=== PATIENT | female | born 1935 | race American Indian/Alaskan Native ===

== ENCOUNTER 2017-03-08 17:16 | Observation (INO) ==
--- NOTE | 2017-03-08 17:36 | Emergency Department Report ---
General Adult HPI - General Chief complaint: Medical Emergency Stated complaint: blood transfusion Time Seen by Provider: 03/08/17 17:24 Source: patient Mode of arrival: ambulatory Limitations: no limitations - History of Present Illness HPI narrative: 81-year-old female presents to the emergency department with the chief complaint of anemia. Patient had preoperative labs on Monday in order to get ready for a left total knee replacement with Dr. Rivera. Patient was noted to have a hemoglobin in the 6 range. Patient denies any pain or discomfort. Patient has not noted any blood in stool. She has not had any emesis. She does take Xarelto. Denies any pain or discomfort. She is currently asymptomatic. She was at home when Dr. Velasco's office called and notified her of her abnormal lab results earlier today. No other complaints or associated symptoms. - Related Data Home Medications Medication Instructions Recorded Confirmed Latanoprost 1 drop BOTH EYES HS #0 08/29/13 03/08/17 Potassium Chloride 20 mg PO BID #0 08/29/13 03/08/17 Atorvastatin Calcium 10 mg PO HS #0 tab 05/13/15 03/08/17 Valsartan 160 mg PO DAILY #0 05/13/15 03/08/17 Pacerone (amiodarone) 200 mg tablet 200 mg PO BID 03/06/17 03/08/17 calcitriol 0.5 mcg capsule 0.5 mcg PO DAILY cap 03/06/17 03/08/17 hydralazine 10 mg tablet 10 mg PO TID 03/06/17 03/08/17 Labetalol HCl 300 mg PO BID 03/08/17 03/08/17 Levothyroxine Tab [Synthroid] 100 mcg PO ACB 03/08/17 03/08/17 Previous Rx's Medication Instructions Recorded Furosemide [Lasix] 40 mg PO DAILY #30 tab 05/16/15 Rivaroxaban [Xarelto] 20 mg PO WS #30 tab 05/16/15 Allergies Allergy/AdvReac Type Severity Reaction Status Date / Time Iodinated Contrast- Oral and Allergy Severe "CAN'T Verified 03/08/17 17:45 IV Dye BREATHE" amoxicillin Allergy Intermediate RASH Verified 03/08/17 17:45 codeine Allergy Intermediate HIVES Verified 03/08/17 17:45 diltiazem Allergy Intermediate RASH Verified 03/08/17 17:45 lisinopril Allergy Intermediate RASH Verified 03/08/17 17:45 Sulfa (Sulfonamide Allergy Unknown Verified 03/08/17 17:45 Antibiotics) clindomycine Allergy Uncoded 03/06/17 11:43 Review of Systems Constitutional: Denies: fever, chills Eyes: Denies: eye pain, vision change ENT: Denies: ear pain, throat pain Cardiovascular: Denies: chest pain, palpitations Respiratory: Denies: cough, dyspnea Gastrointestinal: Denies: abdominal pain, nausea, vomiting, diarrhea Genitourinary: Denies: urgency, dysuria Musculoskeletal: Denies: back pain, arthralgia Integumentary: Denies: erythema, rash Neurological: Denies: headache, numbness Psychiatric: Denies: anxiety, depression Endocrine: Denies: fatigue, heat or cold intolerance Hematological/Lymphatic: Denies: easy bleeding, easy bruising Allergic/Immunologic: Denies: facial swelling, urticaria PFSH Patient Stated Medical History Glaucoma Yes Other HEENT Yes: GLASSES Cardiac Arrhythmia Yes Hypertension Yes Hx Renal Disease Yes: FROM MEDS Other Hematologic Yes: [facility] Medical History (Last Reviewed 03/06/17 @ 12:16 by Trip Rinaldi RN) Anemia (Acute Medical) HTN (hypertension) (Chronic Medical) Glaucoma (Chronic Medical) CHF (congestive heart failure) (Chronic Medical) Afib (Chronic Medical) Hypothyroidism Surgical History: colon;R TKA-2003; hernia Family History: Family History (Last Reviewed 03/06/17 @ 12:16 by Trip Rinaldi RN) Brother HTN (hypertension) - Social History Smoking status: Never smoker Substance use type: does not use Alcohol intake frequency: does not drink Physical Exam - Limitations Limitations: no limitations - General General appearance: alert, in no apparent distress - Normal Exams: Head:: Normocephalic without trauma Eyes:: Pupils are PERRLA w/ EOMI, No scleral icterus, irritation, or foreign bodies noted ENMT:: No facial trauma, nasal exudates, pharyngeal erythema, or exudates are noted Dental: No fractured, loose, or missing teeth noted Neck:: Full range of motion, without adenopathy, JVD, bruits or thyromegaly Chest/Respirations:: Clear all ya, with good airflow, and symmetry bilaterally Cardiovascular:: Regular rate and rhythm, without murmur or gallop, Pulses 2+ all extremities, capillary refill, <2 seconds all extremities Abdomen:: Bowel sounds positive, soft, non-tender, non-distended, no hepatosplenomegaly, masses or bruits noted Lymphatic:: No lymphadenopathy, or lymphedema noted Musculoskeletal:: No tenderness, or deformity noted, good range of motion, all extremities Integumentary:: No rashes, hives, or bruising noted, hair and nails, without abnormality Neurological:: Patient is alert, and oriented, cranial nerves, motor/sensory/ cerebellar, exams w/o gross deficits, to observation Psychiatric:: Patient exhibits, appropriate attention, emotion and affect Course Vital Signs Temperature 98.4 F 03/08/17 17:26 Pulse Rate 62 03/08/17 17:26 Respiratory Rate 18 03/08/17 17:26 Blood Pressure 176/79 H 03/08/17 17:26 Pulse Oximetry 97 03/08/17 17:26 Temperature 97.7 F 03/09/17 08:00 Pulse Rate 59 L 03/09/17 08:40 Respiratory Rate 18 03/09/17 08:00 Blood Pressure 170/74 H 03/09/17 08:00 Pulse Oximetry 96 03/09/17 08:00 Medical Decision Making - MDM Narrative Medical decision making narrative: Labs were discussed in detail with the patient and family and questions are answered. Rectal examination was heme-negative in the emergency department. Patient declines offered analgesic pain medication stating she is currently pain -free. Patient is noted to have a hemoglobin of 6.1. Patient will have her Xarelto held and will be transfused 2 units of packed red blood cells. No imminent life-threatening bleed is noted. Patient is admitted to the service of Dr. Díaz in improved condition. No further orders from accepting physician who is in agreement with the current plan of management. Patient and family are in agreement with the current plan of management. Patient is admitted to the hospital in improved condition. - Differential Diagnosis GI BLEED, Anemia, Metabolic process, CA - Lab Data Result diagrams: 03/09/17 08:41 03/09/17 03:45 Lab Results 03/08/17 03/08/17 03/08/17 Range/Units 17:47 17:47 17:47 WBC 5.5 (4.5-11.0) T/MM3 RBC 3.32 L (4.00-5.20) M/MM3 Hgb 6.1 L (12-16) GM/DL Hct 21.8 L (36-46) % MCV 65.7 L (80-100) UM3 MCH 18.4 L (26-34) UUG MCHC 28.0 L (31-37) GM/DL RDW Std Deviation 44.6 (36.9-50.2) FL Plt Count 258 (130-400) T/MM3 MPV 10.7 (9.4-12.4) UM3 Immature Gran % (Auto) 0.2 (0.0-0.5) % Neut % (Auto) 71.7 H (33-66) % Lymph % (Auto) 14.3 L (23-45) % Taylor % (Auto) 7.8 (0-9.0) % Eos % (Auto) 4.9 H (0-4) % Baso % (Auto) 1.1 (0-2) % Neut # (Auto) 4.0 (1.8-7.7) T/MM3 Lymph # (Auto) 0.8 L (1-4.8) T/MM3 Taylor # (Auto) 0.4 (0-0.8) T/MM3 Eos # (Auto) 0.3 (0-0.5) T/MM3 Baso # (Auto) 0.1 (0-0.2) T/MM3 Abs Immat Gran (auto) 0.01 (0.00-0.03) T/MM3 INR 1.58 H (0.99-1.21) APTT 26.6 (24-36) SEC Turbidity < 20 (0-20) Sodium 143 (134-144) MEQ/L Potassium 3.9 (3.6-5) MEQ/L Chloride 106 (98-107) MEQ/L Carbon Dioxide 27 (22-30) MEQ/L Anion Gap 10 (5-15) MEQ/L BUN 17.0 (7-17) MG/DL Creatinine 1.7 H (0.7-1.2) MG/DL GFR Calculation 29 BUN/Creatinine Ratio 10 (6-26) RATIO Glucose 111 H (65-110) MG/DL Calculated Osmolality 278 (261-280) MOSM/KG Calcium 9.4 (8.4-10.2) MG/DL Total Bilirubin 0.50 (0.20-1.30) MG/DL Icterus Index < 2 (0-7) AST 22 (14-36) U/L ALT 34 (9-52) U/L Alkaline Phosphatase 122 (38-126) U/L Troponin I < 0.012 (0-0.12) ng/ml Total Protein 6.9 (6.3-8.2) G/DL Albumin 3.8 (3.5-5.0) G/DL Globulin 3.1 (2.4-3.6) G/DL Albumin/Globulin Ratio 1.2 (1.1-2.2) RATIO Specimen Hemolysis < 15 (0-25) Blood Type Antibody Screen Crossmatch (AHG) Blood Product Request 03/08/17 03/08/17 Range/Units 18:08 18:32 WBC (4.5-11.0) T/MM3 RBC (4.00-5.20) M/MM3 Hgb (12-16) GM/DL Hct (36-46) % MCV (80-100) UM3 MCH (26-34) UUG MCHC (31-37) GM/DL RDW Std Deviation (36.9-50.2) FL Plt Count (130-400) T/MM3 MPV (9.4-12.4) UM3 Immature Gran % (Auto) (0.0-0.5) % Neut % (Auto) (33-66) % Lymph % (Auto) (23-45) % Taylor % (Auto) (0-9.0) % Eos % (Auto) (0-4) % Baso % (Auto) (0-2) % Neut # (Auto) (1.8-7.7) T/MM3 Lymph # (Auto) (1-4.8) T/MM3 Taylor # (Auto) (0-0.8) T/MM3 Eos # (Auto) (0-0.5) T/MM3 Baso # (Auto) (0-0.2) T/MM3 Abs Immat Gran (auto) (0.00-0.03) T/MM3 INR (0.99-1.21) APTT (24-36) SEC Turbidity (0-20) Sodium (134-144) MEQ/L Potassium (3.6-5) MEQ/L Chloride (98-107) MEQ/L Carbon Dioxide (22-30) MEQ/L Anion Gap (5-15) MEQ/L BUN (7-17) MG/DL Creatinine (0.7-1.2) MG/DL GFR Calculation BUN/Creatinine Ratio (6-26) RATIO Glucose (65-110) MG/DL Calculated Osmolality (261-280) MOSM/KG Calcium (8.4-10.2) MG/DL Total Bilirubin (0.20-1.30) MG/DL Icterus Index (0-7) AST (14-36) U/L ALT (9-52) U/L Alkaline Phosphatase (38-126) U/L Troponin I (0-0.12) ng/ml Total Protein (6.3-8.2) G/DL Albumin (3.5-5.0) G/DL Globulin (2.4-3.6) G/DL Albumin/Globulin Ratio (1.1-2.2) RATIO Specimen Hemolysis (0-25) Blood Type O Positive Antibody Screen Negative Crossmatch (AHG) See Detail Blood Product Request Cancelled - EKG Data EKG #1 EKG results narrative: Sinus bradycardia with first-degree AV block. 58 beats per minute. No STEMI. Critical Care Time Critical Care Time: Yes Total Critical Care Time: 37 Attestation: 35 minutes of critical care time was assessed to the patient as the patient had a hemoglobin of 6.1 and was transfused 2 units of packed red blood cells. Patient required complex medical decision-making, repeated assessment at the bedside, and had potential for decompensation. Critical care time was spent treating the patient, documenting the medical record, making telephone calls on the patient's behalf, and updating family members. Disposition Clinical Impression: anemia Disposition: 02 To [facility] Condition: Improved Time of Disposition: 18:00 (Admit. Dr. Díaz. ) - Seen By: physician
[2017-03-08] MEDS: SALINE FLUSH 10ml SYRINGE IVF PRN ×2 (17:49→21:05)
--- NOTE | 2017-03-08 19:23 | History & Physical Report ---
History of Present Illness Date: 03/08/17 Chief complaint: low hemoglobin HPI: Patient is a 81-year-old female who presents to the emergency room because she had preop lab work and her hemoglobin was 6.1. She reports she is planning on having knee surgery within the next few weeks with Dr. Rivera. She has not been feeling ill. Her only complaints are the left knee pain and she has had some lightheadedness. She had thought that was a side effect of one of her medications, but that medication has been discontinued and she still has some lightheadedness. She is unsure when her last CBC was performed. There is documentation from May 2015 of a hemoglobin of 9.8. She does have chronic kidney disease and sees Dr. Chen for this. She also has atrial fibrillation and CHF and sees Dr. Barksdale for this. She is currently on Xarelto for A. fib. She does not know when her last colonoscopy was. She has not noted any blood in her stool. Hemoccult in the ER was negative. No history of gastritis, but does have a history of diverticulitis for which she had bowel resection. Labs drawn in the ER show a hemoglobin of 6.1 with microcytic indices. INR 1.58 , CMP essentially negative other than creatinine 1.7. It appears her baseline creatinine averages approximately 1.4. Her creatinine July 2016 was 1.49. She has hypothyroidism and hyperparathyroidism. Her last TSH was 3.48 in October 2016. On exam, patient is noted to have a palpable mass in the left lower quadrant. Patient tells me she's had this for years. She states she's told other healthcare providers about it, but they were not concerned. She does not believe that she's had any workup for this. She states she had a good bowel movement yesterday. Does not feel constipated. She also mentions that she has "lost a lot of weight." She states she really wasn't trying to. She feels like she may have lost some because she was on a medicine that caused sores in her mouth. She also reports she doesn't have many "taste buds left," and feels that may contribute to her not eating as much. Review of Systems All systems PM: 10-point ROS was reviewed, no additional remarkable complaints except - Constitutional Constitutional: Present: other (lightheadedness) - Musculoskeletal Musculoskeletal: Present: arthralgias (left knee pain) PFSH Medical History Hypertension Chronic kidney disease-stage III Congestive heart failure Atrial fibrillation-paroxysmal Chronic anticoagulation Secondary hyperparathyroidism Hypothyroidism Aortic stenosis-mild Tricuspid valve insufficiency Dyslipidemia Glaucoma Surgical History: R TKA-2002; hernia repair, appendectomy, cholecystectomy, hysterectomy, partial bowel resection with colostomy followed later by reanastomosis Family History: Family History Mother-hypertension, obesity Sister-hypertension and obesity Paternal grandfather-[place] Brother -hypertension - Social History Smoking status: Never smoker Substance use type: does not use Alcohol intake frequency: does not drink Housing: house Household members: spouse Social history: PCP-Dr. 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 Medications Home Medications Medication Instructions Recorded Confirmed Type Latanoprost 1 drop BOTH EYES HS #0 08/29/13 03/08/17 History Potassium Chloride 20 mg PO BID #0 08/29/13 03/08/17 History Atorvastatin Calcium 10 mg PO HS #0 tab 05/13/15 03/08/17 History Valsartan 160 mg PO DAILY #0 05/13/15 03/08/17 History Pacerone (amiodarone) 200 mg tablet 200 mg PO BID 03/06/17 03/08/17 History calcitriol 0.5 mcg capsule 0.5 mcg PO DAILY cap 03/06/17 03/08/17 History hydralazine 10 mg tablet 10 mg PO TID 03/06/17 03/08/17 History Labetalol HCl 300 mg PO BID 03/08/17 03/08/17 History Levothyroxine Tab [Synthroid] 100 mcg PO ACB 03/08/17 03/08/17 History Allergies Allergy/AdvReac Type Severity Reaction Status Date / Time Iodinated Contrast- Oral and Allergy Severe "CAN'T Verified 03/08/17 17:45 IV Dye BREATHE" amoxicillin Allergy Intermediate RASH Verified 03/08/17 17:45 codeine Allergy Intermediate HIVES Verified 03/08/17 17:45 diltiazem Allergy Intermediate RASH Verified 03/08/17 17:45 lisinopril Allergy Intermediate RASH Verified 03/08/17 17:45 Sulfa (Sulfonamide Allergy Unknown Verified 03/08/17 17:45 Antibiotics) clindomycine Allergy Uncoded 03/06/17 11:43 Exam Vital Signs: Temperature 98.4 F 03/08/17 17:26 Pulse Rate 60 03/08/17 17:56 Respiratory Rate 18 03/08/17 17:56 Blood Pressure 164/72 H 03/08/17 17:56 Pulse Oximetry 97 03/08/17 17:56 Height/Weight/BMI: Height 1.55 m Weight 93.5 kg - Constitutional Present: no acute distress, well nourished, well developed, obese - Routine HEENT Exam Head: Present: normocephalic, atraumatic Eye: Present: EOMI ENT: Present: mucous membranes moist, dentition normal - Routine Neck Exam Present: supple. Absent: lymphadenopathy, thyromegaly - Routine Respiratory Exam Present: CTA bilaterally. Absent: wheezes - Routine Cardiovascular Exam Present: RRR, murmur (grade 2) - Routine Abdominal Exam Present: soft, normoactive bowel sounds, non distended, surgical scars. Absent : tenderness Comments: She has an area on the right lower abdomen which is approximately 10 cm in diameter, she refers to as a "hernia" - it is nontender. Really does not increase in size with Valsalva. Question if this could be a lipoma. This would be an odd area for hernia. It is not in the area of her surgical scarring. She has an approximately 5 cm mass in the left lower quadrant which is essentially just lateral to this other abnormal area, but this area is palpably hard. Could be stool in the colon, but need to rule out pathologic mass. - Routine Extremities Exam Present: edema (no pedal edema. Patient has a tightness and fullness to her lower legs compared to her feet, no pitting edema.), normal capillary refill - Routine Skin Exam Present: dry, warm - Routine Neurological Exam Present: alert, oriented X3, CN II-XII intact - Routine Psychiatric Exam Present: normal affect, cooperative Results - Labs CBC & Chem 7: 03/08/17 17:47 03/08/17 17:47 Labs: Laboratory Tests 03/08/17 17:47 Total Bilirubin 0.50 AST 22 ALT 34 Troponin I < 0.012 Laboratory Tests 03/08/17 17:47 INR 1.58 H APTT 26.6 Hemoccult 1 in ER-negative Assessment and Plan (1) Anemia Current visit: Yes Status: Acute (2) HTN (hypertension) Current visit: No Status: Chronic (3) Glaucoma Current visit: No Status: Chronic (4) CHF (congestive heart failure) Current visit: No Status: Chronic (5) Afib Current visit: No Status: Chronic Assessment and Plan: Assessment Anemia Abdominal mass Atrial fibrillation-paroxysmal Chronic anticoagulation Hypertension Chronic kidney disease-stage III Congestive heart failure Secondary hyperparathyroidism Hypothyroidism Aortic stenosis-mild Tricuspid valve insufficiency Dyslipidemia Glaucoma Diverticulitis Plan Admit for hospital observation under the hospitalist service (Dr. Díaz, attending) for blood transfusion and further monitoring. Type and cross and give 2 units PRBCs. Given her CHF will hold off on IV fluids other than the blood initially. Repeat CBC and BMP in the a.m. Hold Xarelto temporarily given her low hemoglobin. Workup anemia further with iron studies and B12/folate. CT abdomen/pelvis in the a.m. to workup the abdominal mass. Check urinalysis given the abdominal mass. Protonix for GI protection and possible GI bleed. Repeat Hemoccult with next BM. SCDs for DVT prophylaxis. Check with PCPs office in the morning to see if we can get a previous hemoglobin for baseline. Patient wishes to be a full code. Care to return to her PCP, Dr. Gama, on discharge. 03/08/2017-Dr. Díaz I reviewed this chart, the patient history, and the [employer]PERVIS[employer]'s/PA's documented findings as above. We discussed and formulated the assessment and plan as above with the additions below. The patient was seen this evening accompanied by her grandson. She states she was feeling fine other than some lightheadedness and on preop lab was found to have a low hemoglobin. She denies any black stools or bloody stools. She denies any upper abdominal pain. She does have a history of gastric ulcer many many years ago. She states she's had a 40 pound weight loss which was partly intentional and partly she thinks because of sores in her mouth and lips. The sores have healed but she states she has lost her sense of taste since then. She states that she has some chronic mild abdominal discomfort and relates this to previous surgery that she's had in the past for diverticulitis with colostomy placement and takedown. She states she has some mesh in her abdomen from her previous surgery and was told that it may have "fallen". On exam she is alert and oriented and in no acute distress. Chest is clear to auscultation. Cardiovascular reveals a regular rate and rhythm with a 2/6 systolic murmur. Abdomen is soft and obese with positive bowel sounds. She does have some firmness in the left lower quadrant which may be the area of her mesh. She has no particular tenderness to exam. Extremities reveal trace edema. Skin is warm and dry and pale. Impression and plan We'll admit for observation and give 2 units of blood. Resume her usual home medications. Initiate anemia workup. Possible discharge in the morning. Hold Xarelto for now. Recheck lab in the morning. DVT Prophylaxis: SCD's GI Prophylaxis: Protonix Resuscitation Status: Full Code Hospital Course Summary Disclaimer: The visit summary below is not to be considered part of the above Progress Note. Hospital Course: Assessment Anemia Abdominal mass Atrial fibrillation-paroxysmal Chronic anticoagulation Hypertension Chronic kidney disease-stage III Congestive heart failure Secondary hyperparathyroidism Hypothyroidism Aortic stenosis-mild Tricuspid valve insufficiency Dyslipidemia Glaucoma Diverticulitis 03/08/17-hospital admission for observation Admit for hospital observation under the hospitalist service (Dr. Díaz, attending) for blood transfusion and further monitoring. Type and cross and give 2 units PRBCs. Given her CHF will hold off on IV fluids other than the blood initially. Repeat CBC and BMP in the a.m. Hold Xarelto temporarily given her low hemoglobin. Workup anemia further with iron studies and B12/folate. CT abdomen/pelvis in the a.m. to workup the abdominal mass. Check urinalysis given the abdominal mass. SCDs for DVT prophylaxis. Check with PCPs office in the morning to see if we can get a previous hemoglobin for baseline. Patient wishes to be a full code. Care to return to her PCP, Dr. Gama, on discharge.
[2017-03-08 19:39] VITALS: BMI 38.6
[2017-03-08] MEDS ORDERED: PNEUMOCOCCAL 13 VACCINE 0.5ml INJECTION IM ONE (19:54)
[2017-03-08] MEDS: NS FLUSH BAG 500ml IV PRN (21:06)
[2017-03-08] MEDS ORDERED: LABETALOL 100 MG TABLET PO ONE (21:29)
[2017-03-08] MEDS: AMIODARONE 200 MG TABLET PO SCH (21:56)
[2017-03-08] MEDS: HYDRALAZINE 10 MG TABLET PO SCH (22:04)
[2017-03-09] MEDS ORDERED: FUROSEMIDE 20 MG/2 ML INJECTION IVP ONE
[2017-03-09] MEDS: SALINE FLUSH 10ml SYRINGE IVF PRN ×3 (00:47→04:03)
[2017-03-09] MEDS: ACETAMINOPHEN 325 MG TABLET PO PRN ×2 (01:03→10:42)
[2017-03-09] MEDS: NS FLUSH BAG 500ml IV PRN (01:26)
[2017-03-09] MEDS ORDERED: LEVOTHYROXINE 100 MCG TABLET PO SCH (06:30)
[2017-03-09] MEDS ORDERED: LABETALOL 100 MG TABLET PO SCH (09:00)
[2017-03-09] MEDS ORDERED: FUROSEMIDE 40 MG TABLET PO SCH (09:00)
[2017-03-09] MEDS ORDERED: Valsartan 160 MG TABLET PO SCH (09:00)
[2017-03-09] MEDS ORDERED: PANTOPRAZOLE 40 MG INJECTION IVP SCH (09:00)
[2017-03-09] MEDS ORDERED: CALCITRIOL 0.25 MCG CAPSULE PO SCH (09:00)
--- NOTE | 2017-03-09 09:26 | CT Scan Report ---
Indication: abdominal mass PROCEDURE: CT abdomen pelvis wo con: Encounter: Initial Comparison: None Technique: Axial CT images were performed through the abdomen and pelvis without intravenous contrast. Coronal and sagittal two-dimensional reformats. Automated Exposure Control and Iterative Reconstruction dose reducing techniques were utilized. Findings: Atelectasis in both lower lobes with septal thickening and small pleural effusions. Heart is enlarged. The unenhanced liver shows increased attenuation without contour deforming mass. Possible cyst or focal fatty deposition near the falciform ligament. The gallbladder is not seen. The spleen, fatty replaced pancreas and adrenal glands are within normal limits. The left kidney is normal. Right kidney shows a prominent anterior 6.2 cm cyst along with two large lower pole stones. The most prominent stone measures 1.5 cm in diameter. The bladder is grossly normal. Uterus is absent. Sigmoid colon area anastomosis. Moderate stool in the colon. There is an enlarged small and large bowel containing ventral hernia with a fascial defect opening of 4.5 cm and a hernia sac size of 20 cm transverse by 8.5 cm anteroposteriorly. Area of induration and soft tissue thickening at the posterior inferior margin of the hernia sac best seen on axial image #62 and sagittal image 46 adjacent to a prominent calcification. This could be due to the patient's history of prior colostomy and surgeries. No evidence of a small bowel obstruction. No discrete mass seen in the abdomen or pelvis. No obvious lymphadenopathy on this noncontrast study. Bone windows show degenerative change in scoliosis in the spine. Impression: 1. Large ventral lower abdominal and upper pelvic hernia as above. 2. Small pleural effusions and findings of pulmonary edema. 3. Increased density of the liver could be due to a mineral deposition disorder such as hemochromatosis. Recommend clinical correlation. 4. Right nephrolithiasis. .
[2017-03-09] MEDS ORDERED: ASCORBIC ACID 500 MG TABLET PO SCH (09:30)
[2017-03-09] MEDS ORDERED: FERROUS SULFATE 324 MG TABLET PO SCH (09:30)
[2017-03-09] MEDS: HYDRALAZINE 10 MG TABLET PO SCH ×2 (09:32→14:57)
[2017-03-09] MEDS: AMIODARONE 200 MG TABLET PO SCH (09:32)
[2017-03-09] MEDS ORDERED: PNEUMOCOCCAL 13 VACCINE 0.5ml INJECTION IM ONE (12:00)
--- NOTE | 2017-03-09 15:20 | Discharge Summary ---
<Mayuri Muñoz - Last Filed: 03/09/17 15:43> Discharge Information Date of admission: 03/08/17 19:19 Anticipated date of discharge: 03/09/17 Attending Physician: Tamy Díaz MD Primary care physician: Albina Gama, DO - Discharge Diagnosis (1) Afib Status: Chronic (2) CHF (congestive heart failure) Status: Chronic (3) Glaucoma Status: Chronic (4) HTN (hypertension) Status: Chronic (5) Anemia Status: Acute Anemia Abdominal mass Atrial fibrillation-paroxysmal Chronic anticoagulation Hypertension Chronic kidney disease-stage III Congestive heart failure Secondary hyperparathyroidism Hypothyroidism Aortic stenosis-mild Tricuspid valve insufficiency Dyslipidemia Glaucoma Diverticulitis - Procedures Procedures: Transfusion of two units of PRBC's - Laboratory Labs: 03/09/17 08:41 03/09/17 03:45 Laboratory Tests 03/08/17 03/09/17 03/09/17 17:47 03:45 08:41 Hgb 6.1 L 7.2 L D 7.9 L Laboratory Tests 03/08/17 17:47 INR 1.58 H APTT 26.6 Laboratory Tests 03/08/17 03/08/17 17:47 17:47 Iron Pending TIBC Pending % Saturation Pending Vitamin B12 Pending Folate Pending Neg hemoccult x 2 - Radiology Radiology: Date of Exam: 03/09/17 Ordering Provider: Mayuri Muñoz Type of Exam(s): CT abdomen pelvis wo con Reason for Exam(s): abdominal mass Indication: abdominal mass PROCEDURE: CT abdomen pelvis wo con: Encounter: Initial Comparison: None Technique: Axial CT images were performed through the abdomen and pelvis without intravenous contrast. Coronal and sagittal two-dimensional reformats. Automated Exposure Control and Iterative Reconstruction dose reducing techniques were utilized. Findings: Atelectasis in both lower lobes with septal thickening and small pleural effusions. Heart is enlarged. The unenhanced liver shows increased attenuation without contour deforming mass. Possible cyst or focal fatty deposition near the falciform ligament. The gallbladder is not seen. The spleen, fatty replaced pancreas and adrenal glands are within normal limits. The left kidney is normal. Right kidney shows a prominent anterior 6.2 cm cyst along with two large lower pole stones. The most prominent stone measures 1.5 cm in diameter. The bladder is grossly normal. Uterus is absent. Sigmoid colon area anastomosis. Moderate stool in the colon. There is an enlarged small and large bowel containing ventral hernia with a fascial defect opening of 4.5 cm and a hernia sac size of 20 cm transverse by 8.5 cm anteroposteriorly. Area of induration and soft tissue thickening at the posterior inferior margin of the hernia sac best seen on axial image #62 and sagittal image 46 adjacent to a prominent calcification. This could be due to the patient's history of prior colostomy and surgeries. No evidence of a small bowel obstruction. No discrete mass seen in the abdomen or pelvis. No obvious lymphadenopathy on this noncontrast study. Bone windows show degenerative change in scoliosis in the spine. Impression: 1. Large ventral lower abdominal and upper pelvic hernia as above. 2. Small pleural effusions and findings of pulmonary edema. 3. Increased density of the liver could be due to a mineral deposition disorder such as hemochromatosis. Recommend clinical correlation. 4. Right nephrolithiasis. History of Present Illness HPI: Patient is a 81-year-old female who presents to the emergency room because she had preop lab work and her hemoglobin was 6.1. She reports she is planning on having knee surgery within the next few weeks with Dr. Rivera. She has not been feeling ill. Her only complaints are the left knee pain and she has had some lightheadedness. She had thought that was a side effect of one of her medications, but that medication has been discontinued and she still has some lightheadedness. She is unsure when her last CBC was performed. There is documentation from May 2015 of a hemoglobin of 9.8. She does have chronic kidney disease and sees Dr. Chen for this. She also has atrial fibrillation and CHF and sees Dr. Barksdale for this. She is currently on Xarelto for A. fib. She does not know when her last colonoscopy was. She has not noted any blood in her stool. Hemoccult in the ER was negative. No history of gastritis, but does have a history of diverticulitis for which she had bowel resection. Labs drawn in the ER show a hemoglobin of 6.1 with microcytic indices. INR 1.58 , CMP essentially negative other than creatinine 1.7. It appears her baseline creatinine averages approximately 1.4. Her creatinine July 2016 was 1.49. She has hypothyroidism and hyperparathyroidism. Her last TSH was 3.48 in October 2016. On exam, patient is noted to have a palpable mass in the left lower quadrant. Patient tells me she's had this for years. She states she's told other healthcare providers about it, but they were not concerned. She does not believe that she's had any workup for this. She states she had a good bowel movement yesterday. Does not feel constipated. She also mentions that she has "lost a lot of weight." She states she really wasn't trying to. She feels like she may have lost some because she was on a medicine that caused sores in her mouth. She also reports she doesn't have many "taste buds left," and feels that may contribute to her not eating as much. Objective Vital signs: Temperature 97.7 F 03/09/17 08:00 Pulse Rate 59 L 03/09/17 08:40 Respiratory Rate 18 03/09/17 08:00 Blood Pressure 170/74 H 03/09/17 08:00 Pulse Oximetry 96 03/09/17 08:00 Height/Weight/BMI: Height 1.55 m Weight 93.1 kg Body Mass Index 38.6 - Constitutional Present: no acute distress, well nourished, well developed, obese - Routine HEENT Exam Head: Present: normocephalic Eye: Present: EOMI ENT: Present: mucous membranes moist - Routine Respiratory Exam Present: CTA bilaterally. Absent: wheezes - Routine Cardiovascular Exam Present: RRR, murmur (2/6) - Routine Abdominal Exam Present: soft, normoactive bowel sounds, non distended, hernia (ventral). Absent: tenderness - Routine Extremities Exam Present: edema, normal capillary refill - Routine Skin Exam Present: dry, warm - Routine Neurological Exam Present: alert, oriented X3, CN II-XII intact - Routine Lymphatic Exam Lymphatic: Absent: adenopathy - Routine Psychiatric Exam Present: normal affect, cooperative Hospital Course This is a general summary of the patient's hospital course. For more details refer to the complete medical record. Hospital course: Assessment Anemia Abdominal mass Atrial fibrillation-paroxysmal Chronic anticoagulation Hypertension Chronic kidney disease-stage III Congestive heart failure Secondary hyperparathyroidism Hypothyroidism Aortic stenosis-mild Tricuspid valve insufficiency Dyslipidemia Glaucoma Diverticulitis 03/08/17-hospital admission for observation Admit for hospital observation under the hospitalist service (Dr. Díaz, attending) for blood transfusion and further monitoring. Type and cross and give 2 units PRBCs. Given her CHF will hold off on IV fluids other than the blood initially. Repeat CBC and BMP in the a.m. Hold Xarelto temporarily given her low hemoglobin. Workup anemia further with iron studies and B12/folate. CT abdomen/pelvis in the a.m. to workup the abdominal mass. Check urinalysis given the abdominal mass. SCDs for DVT prophylaxis. Check with PCPs office in the morning to see if we can get a previous hemoglobin for baseline. Patient wishes to be a full code. Care to return to her PCP, Dr. Gama, on discharge. 03/09/17 - Discharged home Patient was given 2 U of PRBC's overnight. Hemoglobin improved to 7.9 this morning. Patient had a negative hemoccult in the ER and this afternoon. She had a CT scan of her abd/pelvis which showed a large ventral hernia, but no concerning findings. Patient is feeling fine and wishes to go home. Her vitals are stable. Follow up with Dr Gama on Monday. She'll need f-u hgb and repeat potassium level. She was 3.2 on discharge and was given an extra dose of potassium today. Start Ferrous sulfate 325mg qd-BID with Vit C 500 for absorption. Consider EGD and colonoscopy for further w-u prior to knee surgery. Will continue to hold Xarelto per PCP. Iron and B12 studies are still pending. Lab will fax them to Dr. Gama's office when resulted. NOTE: Patient received her Prevnar 13 on 03/09/17. Time spent with patient: discharge greater than 30 minutes DVT Prophylaxis: SCD's GI Prophylaxis: Protonix Discharge Plan - Discharge Disposition Disposition: Discharged Home, Self-Care *Condition: Improved Reason For Visit (Visit label in EMR): anemia - Discharge Medications *Discharge Medications: New Ascorbic Acid [Vitamin C] 500 mg PO BID tablet Ferrous Sulfate [Feosol] 324 mg PO BIDWM #60 tab Continue Valsartan 160 mg PO DAILY #0 Furosemide [Lasix] 40 mg PO DAILY #30 tab Labetalol HCl 300 mg PO BID Potassium Chloride 20 mg PO BID #0 Latanoprost 1 drop BOTH EYES HS #0 Atorvastatin Calcium 10 mg PO HS #0 tab Levothyroxine Tab [Synthroid] 100 mcg PO ACB hydralazine 10 mg tablet 10 mg PO TID calcitriol 0.5 mcg capsule 0.5 mcg PO DAILY cap Pacerone (amiodarone) 200 mg tablet 200 mg PO BID Discontinued Rivaroxaban [Xarelto] 20 mg PO WS #30 tab - Discharge Packet/Instructions *Diet: heart healthy *Activity: as tolerated *Pain Management/Treatment: n/a *Wound Care: n/a *Expected Signs/Symptoms: increased energy *Notify Physician if: you become dizzy and lightheaded, or if you develop chest pain or shortness of breath or note blood in your stools. *During Business Hours Contact: Dr. Gama's office *After Business Hours Contact: Dr. Gama's office and follow after hours instructions. *Pending Lab/Results: Follow up w/your PCP - Referrals/Follow Up *Referrals/Follow Up: Albina Gama DO [Family Provider] - (f-u with Dr. Gama on Monday, Mar 13 APPOINTMENT WITH ALBINA GAMA ON 03/13/2017 AT 1:40 PM OFFICE NUMBER [phone]) - Patient Handouts - Dismissal Complete Discharge Instructions are:: Complete <Tamy Díaz - Last Filed: 03/09/17 18:04> Discharge Information Date of admission: 03/08/17 19:19 Attending Physician: Tamy Díaz MD Primary care physician: Albina Gama DO - Discharge Diagnosis (1) Afib Status: Chronic (2) CHF (congestive heart failure) Status: Chronic (3) Glaucoma Status: Chronic (4) HTN (hypertension) Status: Chronic (5) Anemia Status: Acute - Laboratory Labs: 03/09/17 08:41 03/09/17 03:45 Objective Vital signs: Temperature 98.0 F 03/09/17 16:05 Pulse Rate 57 L 03/09/17 16:05 Respiratory Rate 20 03/09/17 16:05 Blood Pressure 173/75 H 03/09/17 16:05 Pulse Oximetry 97 03/09/17 16:05 Height/Weight/BMI: Height 1.55 m Weight 93.1 kg Body Mass Index 38.6 Hospital Course This is a general summary of the patient's hospital course. For more details refer to the complete medical record. Hospital course: 03/09/2017-I reviewed this chart, the patient history, and the [employer]'s/PA's documented findings as above. We discussed and formulated the assessment and plan as above with the additions below.-Arjun The patient was seen this morning and again this afternoon. She is feeling well. She denies any shortness of breath. She is walking in the halls without difficulty other than her knee pain. She is eating and drinking well. She had a normal bowel movement this afternoon. Hemoglobin improved to approximately 2 points after transfusion of 2 units. I suspect that she has had a slowly developing anemia. On exam she is alert and in no acute distress. Chest is clear to auscultation. Cardio vascular reveals a regular rate and rhythm with a 2/6 systolic murmur. Abdomen is soft with mild tenderness in the lower abdomen related to her hernias. Extremities are free of edema. We'll dismiss to home today with close follow-up with Dr. Gama. I did notify the patient that if she should develop shortness of breath, lightheadedness, chest pain, bloody stools, tarry black stools, or vomiting of blood or coffee- ground materials, she should seek medical attention right away. She stated understanding of this. She agrees to close follow-up with Dr. Gama early next week. I did speak with Dr. Gama and discussed hospital findings and discharge plans. At this time, we will keep the patient off of her anticoagulation. We also discussed further evaluation of the patient's anemia prior to her planned knee surgery.
[2017-03-09 16:06] VITALS: BP 173/75; PULSE 57; RESP 20; TEMP 98; O2SAT 97
[2017-03-09] MEDS ORDERED: PNEUMOCOCCAL VAC ADMIN CHARGE INJ ONE (16:44)
[2017-03-09] MEDS ORDERED: HYDRALAZINE 10 MG TABLET PO SCH (17:30)
[2017-03-09] MEDS ORDERED: LATANOPROST 0.005% EYE DROPS 2.5ml RIGHT EYE SCH (21:00)
[2017-03-09] MEDS ORDERED: ATORVASTATIN 10 MG TABLET PO SCH (21:00)
== END 2017-03-09 16:45 | disposition home or self-care (01) ==
LOC: ED 17:16 → MED 17:16
PROVIDERS: ADMIT Internal Medicine; ATTEND Internal Medicine